=== PATIENT | male | born 1960 | race Caucasian/White ===

== ENCOUNTER 2018-11-20 06:08 | Inpatient (IN) | payer BC ==
[~2018-11-20] VITALS: Ht 182.9 cm; Wt 84.9 kg
[2018-11-20] VITALS (24 sets, daily range): BP systolic 128–186; BP diastolic 74–109; PULSE 70–104; RESP 15–25; Ht 182.9 cm; Wt 84.9 kg
[~2018-11-20 06:08] MED LIST: CEFAZOLIN 2 GM/50 ML (PMX) 50 ML IVPB SCH
[2018-11-20] MEDS ORDERED: GLYCOPYRROLATE 0.4 MG INJ ONE (06:17)
[2018-11-20] MEDS ORDERED: FENTAnyl 50 MCG/ML VIAL ONE ×2 (06:17→11:29)
[2018-11-20] MEDS ORDERED: NEOSTIGMINE 3 MG/3 ML SYRINGE ONE (06:17)
[2018-11-20] MEDS ORDERED: LIDOCAINE 2% (SDV) 5 ML INJ ONE (06:17)
[2018-11-20] MEDS ORDERED: ROCURONIUM 50 MG INJ ONE (06:17)
[2018-11-20] MEDS ORDERED: PROPOFOL 20 ML ONE (06:17)
[2018-11-20] MEDS ORDERED: MIDAZOLAM 1 MG/ML 2 ML INJ ONE (06:18)
[2018-11-20] MEDS ORDERED: DEXAMETHASONE 4 MG/ML 5 ML INJ ONE (06:18)
[2018-11-20] MEDS ORDERED: ONDANSETRON 4 MG INJ ONE (06:18)
[2018-11-20] MEDS ORDERED: SUCCINYLCHOLINE CHLORIDE 100 MG/5 ML SYG IV ONE (06:31)
[2018-11-20] MEDS ORDERED: THROMBIN 5000 UNIT VIAL ONE ×2 (06:55→08:29)
[2018-11-20] MEDS ORDERED: LIDOCAINE 1%/EPI 30 ML INJ ONE (06:55)
[2018-11-20] MEDS ORDERED: GELATIN SIZE 100 SPONGE ONE (06:55)
[2018-11-20] MEDS ORDERED: POLYMYXIN/BACITRACIN 1L IRRIG ONE (06:55)
[2018-11-20] MEDS ORDERED: SEVOFLURANE 15 MIN ONE (07:00)
[2018-11-20] MEDS ORDERED: CEFAZOLIN 1 GM INJ ONE (07:00)
[2018-11-20] MEDS: LACTATED RINGER'S 1,000 ML IV SCH (07:00)
--- NOTE | 2018-11-20 07:04 | PREAC ---
Date/Time of Note Date/Time of Note DATE: 11/20/18 TIME: 06:56 Anesthesia Eval and Record Evaluation Time Pre-Procedure Interview DATE: 11/20/18 TIME: 06:56 Age 58 Sex male NPO: 8 hrs Preoperative diagnosis Cervical Stenosis Planned procedure Anterior Cervical Disc Fusion 4-5, 5-6,6-7With Poss Corpectomy Ands Synthetic Graft Past Medical History Past Medical History: Includes Cardio: Dyslipidemia, Arrythmia Endo: Other Pulm: Other Neuro: Other Musculoskeletal: Other Renal: Other Hepatic: Other GI: Other Heme: Other Psych: Other Infection(s): Other Recreational drugs: Other : Other Surgery & Anesthesia Issues Hx of difficult intubation, Aspiration risk Meds Anticoagulation: No Beta Gildardo within 24 hr: No Reason Beta Gildardo not given: Pt. not on B-Gildardo Current Medications Lactated Ringer's 1,000 ml @ 25 mls/hr Q24H IV ; Start 11/20/18 at 06:00; Stop 11/21/18 at 21:59 Cefazolin Sodium/ Dextrose 50 ml @ 100 mls/hr PREOP IVPB ; Start 11/20/18 at 06:00; Stop 11/20/18 at 16:00 Meds reviewed: Yes Allergies Coded Allergies: No Known Allergy (Unverified , 11/16/18) Allergies Reviewed: Yes Labs/Studies Labs Reviewed: Reviewed by anesthesiologist test: N/A Studies: ECG, CXR Pre-procedure Exam Airway: Adequate mouth opening Mallampati: Mallampati II Teeth: Normal Lung: Normal Heart: Abnormal Anticipated Difficutly with IV: Anticipate Difficult IV Access ASA Physical Status ASA physical status: 2 Emergency: None Planned Anesthetic General/MAC: ETT Neuraxial: Other Nerve block: Other Planned Pain Management Parenteral pain med, Local by surgeon Pre-operative Attestations Prior to commencing anesthesia and surgery, the patient was re-evaluated, there was verification of: *The patient's identity *The results of appropriate recent lab work and preoperative vital signs *The above evaluation not changing prior to induction *Anesthetic plan, risk benefits, alternative and complications discussed with patient/family; questions answered; patient/family understands, accepts and wishes to proceed. DALY MAKI MD Nov 20, 2018 07:04
[2018-11-20] MEDS ORDERED: OXYC30TA PO (07:06)
[2018-11-20] MEDS ORDERED: CARI350T29 PO (07:07)
[2018-11-20] MEDS ORDERED: [UNRECOGNIZED DRUG - OTHER] MC (07:11)
[2018-11-20] MEDS ORDERED: BACL10TA IV (07:13)
--- NOTE | 2018-11-20 07:26 | NUR ---
PT WITH INTRATHECAL PUMP IMPLANT WITH MORPHINE AND BACLOFEN. AWARE, AWARE, OR NURSE AWARE.
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
[2018-11-20] MEDS ORDERED: SUGAMMADEX SODIUM 200 MG/2 ML VIAL IV ONE (09:19)
[2018-11-20] MEDS ORDERED: LIDOCAINE 4% CR ONE (10:31)
[2018-11-20] MEDS ORDERED: FLUMAZENIL 0.5 MG INJ ONE (13:46)
--- NOTE | 2018-11-20 13:58 | NUR ---
NURSING RR RECEIVED PT FROM OR NOT IN ANY DISTRESS .PT HAS NECK COLOR ON ,NEURO VASCULAR CHECK DONE AND IT IS INTACT . .PT HAS PAIN PUMP IMPLANTED TO LLQ . IV TO R HAND G 20 NEEDLE WITH LR INFUSING WELL . F/C TO GRAVITY WITH CLEAR YELLOW URINE . .
[2018-11-20] MEDS ORDERED: ACETAMINOPHEN 325 MG TAB PO PRN (14:00)
[2018-11-20] MEDS ORDERED: NACL 0.9% 3 ML SYG IV SCH (14:00)
[2018-11-20] MEDS ORDERED: ZOLPIDEM 5 MG TAB PO PRN (14:00)
[2018-11-20] MEDS ORDERED: CEPASTAT LOZENGE MT PRN (14:00)
[2018-11-20] MEDS ORDERED: HYDROCODONE/APAP (5/325) TAB PO PRN ×2 (14:00)
[2018-11-20] MEDS ORDERED: AL HYDROX/MG HYDROX/SIMETH 30 ML CUP PO PRN (14:00)
[2018-11-20] MEDS ORDERED: BETHANECHOL 25 MG TAB PO PRN (14:00)
[2018-11-20] MEDS ORDERED: ONDANSETRON 4 MG INJ IV PRN ×2 (14:00→14:30)
[2018-11-20] MEDS ORDERED: DIPHENHYDRAMINE 50 MG CAP PO PRN (14:00)
[2018-11-20] MEDS ORDERED: DIAZEPAM 5 MG TAB PO PRN (14:00)
[2018-11-20] MEDS ORDERED: NALOXONE (0.4 MG/ML) INJ IV PRN (14:00)
--- NOTE | 2018-11-20 14:08 | PAC ---
Date/Time of Note Date/Time of Note DATE: 11/20/18 TIME: 14:07 Post-Anesthesia Notes Post-Anesthesia Note Last documented vital signs Vital Signs Date Temp Pulse Resp B/P (MAP) Pulse Ox O2 O2 Flow FiO2 Time Delivery Rate 11/20/18 100 18 163/101 95 Room Air 14:00 (121) 11/20/18 98.3 13:58 Activity: WNL Respiratory function: WNL Cardiovascular function: WNL Mental status: Baseline Pain reasonably controlled: Yes Hydration appropriate: Yes Nausea/Vomiting absent: No DALY MAKI MD Nov 20, 2018 14:08
[2018-11-20] MEDS: FENTAnyl 50 MCG/ML VIAL IV PRN ×2 (14:26→14:36)
[2018-11-20] MEDS ORDERED: FENTAnyl 50 MCG/ML VIAL IV PRN ×2 (14:30)
[2018-11-20] MEDS ORDERED: hydrALAzine 20 MG INJ IV PRN (14:30)
[2018-11-20] MEDS ORDERED: HALOPERIDOL 5 MG INJ IV PRN (14:30)
[2018-11-20] MEDS ORDERED: METOCLOPRAMIDE 10 MG INJ IV PRN (14:30)
[2018-11-20] MEDS ORDERED: ALBUMIN HUMAN 5% 250 ML IV PRN (14:30)
[2018-11-20] MEDS ORDERED: MIDAZOLAM 1 MG/ML 2 ML INJ IV PRN (14:30)
[2018-11-20] MEDS ORDERED: LABETALOL HCL 20MG INJ IV PRN (14:30)
[2018-11-20] MEDS ORDERED: ALBUTEROL 0.083% (NEB) 2.5 MG/3 ML AMP HHN PRN (14:30)
[2018-11-20] MEDS ORDERED: HYDROmorphONE 1 MG/5 ML IV SYRINGE IV PRN ×3 (14:30)
[2018-11-20] MEDS ORDERED: MEPERIDINE 25 MG INJ IV PRN (14:30)
[2018-11-20] MEDS ORDERED: TRIMETHOBENZAMIDE 100 MG/ML VIAL IM PRN (14:30)
[2018-11-20] MEDS ORDERED: LEVALBUTEROL (NEB) 0.63 MG/3 ML AMP HHN PRN (14:30)
[2018-11-20] MEDS ORDERED: EPHEDrine SULFATE 50 MG/5 ML SYG IV PRN (14:30)
[2018-11-20] MEDS ORDERED: DIPHENHYDRAMINE 50 MG INJ IV PRN (14:30)
[2018-11-20] MEDS ORDERED: morphine (1 MG/ML) 10ML SYRINGE IV PRN ×3 (14:30)
[2018-11-20] MEDS: morphine 1 MG/ML 30 ML (PCA) IV SCH (14:32)
--- NOTE | 2018-11-20 15:30 | NUR ---
Nurse Notes Received Pt from recovery via bed, Pt ao x 4 and stable at this time. Pt came with rigid cervical collar on and ETHANOL QUALITY LEADER pump on demand. Pt's girlfriend Vasquez was at bedside and was updated regarding plan of care per Pt's request. school lunch monitor placed. Incentive spirometer provided and instructions given, return demonstration provided. Pt refused pictures taken, charge nurse aware. Skin assessment done, skin intact. Surgical site with dressing; clean, dry and intact. Rigid cervical collar in place.
--- NOTE | 2018-11-20 15:31 | OPR ---
DATE OF OPERATION: 11/20/2018 PREOPERATIVE DIAGNOSES: 1. Cervical stenosis, C4 to C5, C5 to C6, C6 to C7. 2. Cervical radiculopathy. 3. Cervicalgia. 4. Cervical myelopathy. POSTOPERATIVE DIAGNOSES: 1. Cervical stenosis, C4 to C5, C5 to C6, C6 to C7. 2. Cervical radiculopathy. 3. Cervicalgia. 4. Cervical myelopathy. PROCEDURES: 1. C4 to C5 anterior cervical diskectomy and fusion. 2. C6 corpectomy. 3. Cervical fusion C5, C6, C7. 4. Placement of mechanical device C4 to C5. 5. Placement of mechanical device for corpectomy at C5 through C7. 6. Placement of anterior cervical plate. 7. Use of microscope for intraoperative microdissection. SURGEON: Alyx Gage MD DEPUTY SHERIFF BUILDING GUARD: None. ANESTHESIA: General endotracheal. ESTIMATED BLOOD LOSS: 25 mL. DRAINS PLACED: None. ANESTHESIOLOGIST: Kenny Wiseman MD FINDINGS: Cervical spondylosis and stenosis. COMPLICATIONS: None. DISPOSITION: Recovery. INDICATIONS: The patient is a 58-year-old male with chronic neck pain and progressive right upper extremity weakness with multilevel cervical stenosis and spondylosis. The risks, benefits, alternatives of surgical intervention were discussed with the patient who elected for surgery. PROCEDURE IN DETAILS: The patient was brought to the OR. He was sedated, intubated and anesthesia was successfully induced by anesthesiologist. An arterial line was placed. The patient was placed in the supine position on the operative table. His arms were tucked and appropriately padded. His neck was slightly extended with a log roll placed in a neutral and the patient's head was placed in neutral position. Mild downward traction was applied to the shoulders and were taped. Sequential compression devices were placed in lower extremities. Perioperative antibiotics were given. The patient was sterilely prepped and draped after fluoroscopy was used to localize the initial incision. The patient was monitored with electrophysologic monitoring with SSEP and EMG and baseline potentials established. After surgical timeout, the procedure was commenced. A 5 mL of local anesthetic of 1% lidocaine with epinephrine was injected in the left incision which was diagonal incision parallel to the sternocleidomastoid. The 10-blade knife was used to make an incision through the skin and soft tissue down to platysma. This was sharply dissected and then blunt dissection with a Kitner and digitally was used to dissect through the avascular plane down to the prevertebral fascia. Bovie electrocautery was used to separate the longus colli muscles from the vertebral body in the soft tissue above the vertebral body and the disk was removed. A spinal needle was placed to confirm localization and this was performed over the inferior aspect of C4, complete C5 to C6 and superior aspect of C7 vertebral bodies. Self-retaining retractors were placed. A Neenah pin Neenah pins were then placed in the C7 and C5 vertebral bodies and distraction performed. The microscope was brought in for microdissection. Initial partial diskectomy was performed at C5 and C7 after anterior osteophytes were removed with a high- speed drill. A #11 blade knife was used to incise the disk and some of the disk was removed to define the margins of the C6 vertebral body. A high speed drill was then used to perform a corpectomy. Bone was collected and a bone trap to be used for autograft later. This was carried posteriorly through the cortical bone of the posterior longitudinal ligament. Ligament was and then with Kerrison rongeurs, a foraminotomy was performed at the C5 to C6 and C6 to C7 levels with attention towards the right side where the patient had some mild weakness. A complete diskectomy was performed at C5 to C6 and C6 to C7 levels after corpectomy was performed. The cartilaginous endplate was then removed with a high speed drill and curettes. With the decompression performed, a titanium interbody cage was filled with the autograft and some demineralized bone matrix and then a 24 mm graft tamponaded into the disk space. Distraction was removed. Fluoroscopy was used to confirm the alignment of the graft which appeared good. The self-retaining retractors were then moved to the C4 to C5 level and a diskectomy performed this level. A high speed drill was used to remove the large anterior osteophyte above the C5 to C6 disk space and 11 blade knife was used to incise the disk and perform a diskectomy. This was carried back to the posterior longitudinal ligament which was opened with Kerrison rongeurs to expose the epidrual space. Foraminotomies were performed at C4 to C5 level. A curet was then used to remove the cartilaginous endplate and squared these off to fit to fit the graft. Next, 6 x 14 x 14 PEEK graft filled with autograft harvested and the graft was tapped into the interspace. The distraction was removed and the graft fit snugly and appeared to be an adequate position on the fluoroscopy. The wound was then copiously irrigated and a 51 mm choice anterior cervical plate was then sized and placed over the vertebral body. Two screws were placed superior and inferior holes of the plate as well as into the C5 vertebral body. All screws had excellent purchase. Final tightening of the locking mechanism for the screws was engaged. AP, lateral x-rays performed and showed good instrumentation alignment. The wound was then copiously irrigated with bacitracin irrigation. The wound was evaluated. There was slight hemostasis achieved with bipolar electrocautery. There was no evidence of any significant residual bleeding. . The incision was then closed with 2-0 Vicryl in the platysma, 3-0 interrupted subcutaneous sutures and a running 4-0 Monocryl suture. Dermabond was placed. Incision allowed to dry and a sterile dressing applied. Sponge, needle and cottonoid count were reported correct at the end of the case. Electrophysiologic monitoring remained stable throughout the case. Dictated By: ALYX GAGE MD, LG/RACHNA Conf#: [id number] DID#: [id number]
--- NOTE | 2018-11-20 15:35 | NUR ---
TRANSFER PT TRANSFER TO ROOM 527 IN STABLE CONDITION ,RIGID CERVICAL COLLAR ON ORDERED .NEURO CHEK DONE AND IT IS WNL . CLARIFIED WITH DR GAGE THAT TRUSS BUILDER WAS OK WITH PAIN PUMP .RIGHT RADIAL A LINE D/C PRIOR TRANSFER PER DR MAKI ORDERS .CARE PROVIDED PER [facility] STANDARDS.
[2018-11-20] MEDS ORDERED: ACETAMINOPHEN 1000MG/100ML IV 100 ML IVPB SCH (16:00)
--- NOTE | 2018-11-20 16:27 | NUR ---
Nurse Notes Verified with Joyce from Pharmacy the compatibility of PHOTOGRAPHER SCIENTIFIC morphine and Ancef IVPB. Per Joyce, it is compatible, ok to give with 1 IV line.
[2018-11-20] MEDS: ACETAMINOPHEN 500 MG TAB PO SCH ×2 (16:54→22:12)
[2018-11-20] MEDS: CEFAZOLIN 1 GM/50 ML (PMX) 50 ML IVPB SCH ×2 (17:52→23:57)
--- NOTE | 2018-11-20 18:44 | NUR ---
EOSS Pt ao x 4 and stable at this time. Pt in no distress noted throughout the shift. Pt on Morphine TOWN ADMINISTRATOR pump on demand, per Pt, effectiveness is on and off. Per Pt, pain is manageable. Pt tolerated soft diet. Pt still with rigid cervical collar. Reinforce importance of repositioning and use of incentive spirometer, Pt stated understanding. Pt with intrathecal pain pump, MD is aware. Incision site kept clean, dry and intact. All needs met and all questions answered. Call light within reach. Will endorse to next shift accordingly. Addendum: 11/20/18 at 1925 by HERMILO BIRCH RN TOWN ADMINISTRATOR pump history cleared with grant Pascal.
[2018-11-21] VITALS (11 sets, daily range): BP systolic 100–142; BP diastolic 63–83; PULSE 70–98; RESP 18–20
[2018-11-21] MEDS: morphine 1 MG/ML 30 ML (PCA) IV SCH (02:59)
[2018-11-21] MEDS: ACETAMINOPHEN 500 MG TAB PO SCH ×2 (04:00→09:39)
[2018-11-21] MEDS: LACTATED RINGER'S 1,000 ML IV SCH (06:20)
[2018-11-21] MEDS: CEFAZOLIN 1 GM/50 ML (PMX) 50 ML IVPB SCH ×2 (06:20→12:08)
--- NOTE | 2018-11-21 08:55 | NUR ---
RN NOTES: INFORMED PHARMACIST PT HAD ATHROMBIC PUMP ON LEFT LOWER QUADRANT FOR PAIN CONTROL 13 YRS, BUT NOT IN USE FOR NOW. S/P CERVICAL FUSION C4-C7 SURGERY DAY 1 (11/20/17). PT CURRENTLY ON ARCHITECT MANAGER MORPHINE. HE SAID HE WAS ON PAIN MANAGEMENT SYSTEM FOR 13YRS AND WAS VERY HIGH PAIN TOLERABLE. ARCHITECT MANAGER MORPHINE DID NOT HELP MUCH, PAIN 10/10 ON NECK ALL THE TIME BUT HE DID NOT WANT TO CALL THE SURGION TONIGHT. HE PLANNED TO TALK WITH HIS DOCTOR IN [place] IN AM REGARDING PAIN MANAGEMENT FROM HIS MD TO NEURO SURGION AT [facility] SO HE WILL HAVE A BETTER PAIN RELIEVE. PT ABLE TO SLEEP THROUGH THE NIGHT. ASSISTED X2 WITH JELLO, PT SAID IT WOULD COMFORT HIS THROAT AND NECK. PT ALSO HAS A LIITLE BUMP ON LEFT AND BACK HIS HEAD, ACCORDING TO HIM, THE BUMP PROBABLY HAPPENED DURING THE SURGERY YESTERDAY. APPLIED COLD MEASURE WITH BARRIER. PT SAID, FELT BETTER. ARCHITECT MANAGER CLEARED AT 0730 WITH HERMILO/CHARGE NURSE AND FLORINA/ESTEFANIA RN. DR. GAGE CAME AT BEDSIDE WITH NEW ORDERS, F/U BEDSIDE REPORT WITH AM SHIFT.
[2018-11-21] MEDS: DOCUSATE SODIUM 100 MG CAP PO SCH ×2 (09:39→21:03)
[2018-11-21] MEDS: FERROUS SULFATE (EC) 325 MG TAB PO SCH ×3 (09:39→21:03)
--- NOTE | 2018-11-21 10:04 | PN ---
Date/Time of Note Date/Time of Note DATE: 11/21/18 TIME: 09:44 Assessment/Plan Lines/Catheters IV Catheter Type (from Nrsg): Peripheral IV Aldana in Place (from Nrsg): Yes Assessment/Plan Chief Complaint/Hosp Course POD # 1 s/p C4-5 ACDF, C6 corpectomy and C4-7 fusion. Neurologically stable. D/C Aldana. PT. Ambulate. I spoke with Dr. Jacobo who will contact Dr. Ivan re: pain management. Anticipate D/C tomorrow. Subjective 24 Hr Interval Summary Patient stable. Mostly c/o pain control issues; has chronic opioid issues. Denies hoarseness, weakness, bowel or bladder issues, fever or chills. Reports taht he may feel some improvement in his pre-operative hand numbness. Exam/Review of Systems Vital Signs Vitals Vital Signs Date Temp Pulse Resp B/P (MAP) Pulse Ox O2 O2 Flow FiO2 Time Delivery Rate 11/21/18 75 08:41 11/21/18 98.3 20 142/75 95 Room Air 07:51 (97) Intake and Output 11/20/18 11/20/18 11/21/18 1515:00 23:00 07:00 IntakeIntake Total 1475 ml 300 ml 1200 ml OutputOutput Total 1625 ml 500 ml 2500 ml BalanceBalance -150 ml -200 ml -1300 ml Exam Constitutional: alert, oriented Head: normocephalic Neck: other (incision C/D/I. No swellin or drainage. In hard cervical collar) Neurological: MANAGER CATEGORY II-XII intact, nl mental status, nl speech, nl strength Results Result Diagram: 11/21/18 0647 11/21/18 0647 ALYX GAGE MD Nov 21, 2018 10:04
--- NOTE | 2018-11-21 10:18 | NUR ---
PT EVAL Therapy day number 1 Evaluation Start Time 09:20 Evaluation Total Time 0 min Subjective Current complaint of pain Pain Scale NUMERIC Pain Intensity 9 (0-10) Patient Stated Goal for Pain Relief 0 (0-10) Pain Level Comment neck and B shoulders Pre Treatment Vital Signs Stable Yes - 152/83, 86bpm Exercise Assessment Label Bilat Lower Extremity Exercise Type Active ROM Additional Exercise Comments semi-supine APs, heel slides Exercise Assessment Label Bilat Upper Extremity Exercise Type Active ROM Additional Exercise Comments scapular retraction Supine to Sit Moderate Assist Transfer Sit to Stand Ability Stand by Assist Bed Mobility Sit to Supine Stand by Assist Bed Transfer Ability Contact Guard Assist Chair Transfer Ability Contact Guard Assist Sitting Tolerance 15 min Additional Mobility Comments donning cervical collar, log-roll technique Patient uses wheelchair Not Applicable Gait Assist Levels Contact Guard Assist Assistive Devices Front Wheel Walker Ambulation Distance 100 feet Additional Gait Comments reciprocal, steady, no LOB or rest breaks Additional Stairs Assist Comments TBA Static Sitting Balance Good Dynamic Sitting Balance Good Standing Static Balance Good Dynamic Standing Balance Fair plus Additional Balance Assessments Comments FWW Safety Judgement Good Activity Tolerance Good Equipment Present A pump Aldana Catheter IV pump FARM WORKER Additional Equipment Present rigid cervical collar Post Treatment Pain Intensity 9 0-10 Variance Documentation SEE PT EVAL PT Technical Record Comment PT EVAL Pt is a 58 yo M with PMH hyperlipidemia, cervical spondylosis, chronic neck pain, UE numbness with cervical radiculopathy and possible myelopathy who is now S/P C4-C5 cervical diskectomy and fusion, C6 corpectomy, and C5,C6,C7 cervical fusion on 11/20/18. Pt received in 5W, telemetry. Precautions: rigid cervical collar, spinal precautions PLOF: Pt lives alone in 1st floor apartment with 23 steps to enter. Ambulatory without AD, I with all ADLs. Pt is not working, was driving prior to sx. CLOF: KEVIN Coombs cleared pt for PT evaluation. Pt received in bed, vitals assessed and stable, pt educated in purpose of PT evaluation, spinal precautions, use of rigid cervical collar, and agreeable to PT eval. Bed mobility, transfer, and gait assessment as described above; able to maintain spinal precautions with all mobility. Pt returned to bed, all needs in reach, bed alarm activated, SCD's reapplied, FARM WORKER in reach. RN notified of pt's status. Recommendation: Pt demonstrates steady, reciprocal gait with FWW, amb 100' this session; pt able to maintain spinal precautions with all mobility. Stairs TBA. Pt will benefit from additional skilled PT services during hospital stay for further mobility training. Pt states he would like to d/c to post-acute setting once cleared by MD as pt lives alone and has 23 steps to enter. D/c recommendation pending pt progress. If d/c home pt would benefit from FWW, 3:1 commode. Plan: Continue c PT POC
--- NOTE | 2018-11-21 11:36 | NUR ---
CM NOTES: ORDER FOR ELEVATED TOILET SEAT FAXED TO [facility] AND [facility] ([phone]). MILLI SALDIVAR, KEVINCM [phone]
[2018-11-21] MEDS: ACETAMINOPHEN 1000MG/100ML IV 100 ML IVPB SCH ×3 (11:41→21:51)
--- NOTE | 2018-11-21 15:11 | NUR ---
PT NOTE Therapy day number 1 Subjective Current complaint of pain Pain Scale NUMERIC Pain Intensity 8 (0-10) Patient Stated Goal for Pain Relief 0 (0-10) Pain Level Comment neck and B shoulders Transfer Training Start Time 14:46 Transfer Sit to Stand Ability Stand by Assist Bed Transfer Ability Stand by Assist Chair Transfer Ability Stand by Assist Sitting Tolerance 10 min Additional Mobility Comments donning cervical collar throughout Transfer Training End Time 14:58 Total Transfer Training Time 12 min (8-127) Gait Training Start Time 14:58 Gait Assist Levels Contact Guard Assist Assistive Devices Front Wheel Walker Ambulation Distance 300 feet Additional Gait Comments reciprocal, steady, stable Gait Training End Time 15:11 Total Gait Training Treatment Time 13 min (8-127) Additional Stairs Assist Comments pt unwilling to attempt stairs at this time Static Sitting Balance Good Dynamic Sitting Balance Good Standing Static Balance Good Dynamic Standing Balance Fair plus Additional Balance Assessments Comments FWW Safety Judgement Good Activity Tolerance Good Equipment Present A pump Aldana Catheter IV pump LABORATORY SUPERVISOR Additional Equipment Present rigid cervical collar Post Treatment Pain Intensity 8 0-10 Variance Documentation SEE PT NOTE Total Treament Time 25 min (8-127) Total Minutes 25 Total Units 2 PT Technical Record Comment PT NOTE S: Pt reports feeling better O; RN Corin cleared pt for PT session. Pt receievd up in chair. Pt participated in interventions above. Noted with gait using FWW, steady, stable, reciprocal. Pt unwilling to attempt stairs at this time due to multiple lines and tubes. Pt returned to room up in chair, told to notify nurse if to wanting to return to bed, all needs in reach. RN notified of pt's status, A: Pt demonstrates improved activity tolerance, able to amb 300' with FWW and steady, stable gait. Stairs TBA. P; Continue c PT POC; attempt stairs tomorrow PT CLEARED TO AMB WITH NURSING USING FWW
--- NOTE | 2018-11-21 15:39 | PN ---
Date/Time of Note Date/Time of Note DATE: 11/21/18 TIME: 15:36 Assessment/Plan VTE Prophylaxis Risk score (from Nsg)>0 risk: 2 SCD applied (from Nsg): Yes Pharmacological prophylaxis: NA/contraindicated Pharm contraindication: low risk/ambulating Lines/Catheters IV Catheter Type (from Nrsg): Peripheral IV Urinary Cath still in place: No Assessment/Plan Hospital Course 58 y/o with #pOD # 1 s/p C4-5 ACDF, C6 corpectomy and C4-7 fusion. #Multiple surgeries in the past on chronic pain medications and intrathecal pump #Hypercholesterolemia PLAN -On HOSE TUBING BACKER pump, Tylenol, intrathecal pump( which according to him delivers 7 mg morphne in 24 hrs) - dr gr pain management called for consult - dc iv fluids - ambulate Result Diagram: 11/21/18 0647 11/21/18 0647 Results 24hrs Laboratory Tests Test 11/21/18 06:47 Hemoglobin 11.1 L Hematocrit 33.7 L Sodium Level 140 Potassium Level 4.3 Chloride Level 99 Carbon Dioxide Level 34 H Anion Gap 7 Blood Urea Nitrogen 12 Creatinine 0.91 Est Glomerular Filtrat Rate mL/min > 60 Glucose Level 96 Calcium Level 8.8 Subjective 24 Hr Interval Summary Free Text/Dictation Pt says pain not controlled Exam/Review of Systems Vital Signs Vitals Vital Signs Date Temp Pulse Resp B/P (MAP) Pulse Ox O2 O2 Flow FiO2 Time Delivery Rate 11/21/18 98.0 76 20 129/83 94 Room Air 15:33 (98) Intake and Output 11/20/18 11/20/18 11/21/18 1414:59 22:59 06:59 IntakeIntake Total 1475 ml 300 ml OutputOutput Total 1625 ml 500 ml BalanceBalance -150 ml -200 ml Exam Constitutional: alert, oriented Head: normocephalic Lungs:clear CVS: Regular rate andf rthym Neck: hard collar, no drainge Medications Medications Current Medications Acetaminophen/ Hydrocodone Bitart ([place] (5/325)) 1 tab Q4H PRN PO PAIN LEVEL 1-5; Start 11/20/18 at 14:00 Acetaminophen/ Hydrocodone Bitart ([place] (5/325)) 2 tab Q4H PRN PO PAIN LEVEL 6-10; Start 11/20/18 at 14:00 Zolpidem Tartrate (Ambien) 5 mg HS PRN PO INSOMNIA; Start 11/20/18 at 14:00 Ondansetron HCl (Zofran Inj) 4 mg Q6H PRN IV NAUSEA AND/OR VOMITING Last administered on 11/20/18at 14:42; Admin Dose 4 MG; Start 11/20/18 at 14:00 Al Hydrox/Mg Hydrox/Simethicone (Mag-Al Plus) 15 ml Q4H PRN PO GASTROINTESTINAL UPSET; Start 11/20/18 at 14:00 Docusate Sodium (Colace) 100 mg BID PO Last administered on 11/21/18at 09:39; Admin Dose 100 MG; Start 11/21/18 at 09:00 Acetaminophen (Tylenol Tab) 650 mg Q4H PRN PO fever/ mild pain; Start 11/20/18 at 14:00 Ferrous Sulfate (Ferrous Sulfate (Ec)) 325 mg TID PO Last administered on 11/21/18at 15:27; Admin Dose 325 MG; Start 11/21/18 at 09:00 Diazepam (Valium) 5 mg Q4H PRN PO MUSCLE SPASMS; Start 11/20/18 at 14:00 Phenol (Cepastat Lozenge) 1 lozenge Q2H PRN MT SORE THROAT; Start 11/20/18 at 14:00 Bethanechol Chloride (Urecholine) 25 mg PRN PRN PO UNABLE TO VOID; Start 11/20/18 at 14:00 Diphenhydramine HCl (Benadryl) 50 mg Q6H PRN PO PRURITUS; Start 11/20/18 at 14:00 IV Flush (NS 3 ml) 3 ml PER PROTOCOL IV ; Start 11/20/18 at 14:00 Morphine Sulfate (morphine) 1 mg Q4PCA IV Last administered on 11/21/18at 02:59; Admin Dose 1 MG; Start 11/20/18 at 14:00 Naloxone HCl (Narcan) 0.2 mg Q2M PRN IV overdose; Start 11/20/18 at 14:00 Acetaminophen 100 ml @ 400 mls/hr Q6H IVPB Last administered on 11/21/18at 15:28; Admin Dose 400 MLS/HR; Start 11/21/18 at 10:00; Stop 11/22/18 at 09:59 MARILEE OWEN MD Nov 21, 2018 15:39
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
--- NOTE | 2018-11-21 18:04 | NUR ---
END OF SHIFT AWAKE ALERT MALE PATIENT. VITAL SIGN WAS STABLE AND SINUS RHYTHM ON THE MONITOR. AMBULATE 2 TIME WITH PHYSICAL THERAPIST.PAIN CONTROLLING BY SPORTS MARKETING INTERNSHIP. MONITORING PATIENT.
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
[2018-11-21] MEDS ORDERED: traZODone 50 MG TAB PO PRN (19:30)
[2018-11-21] MEDS ORDERED: morphine 1 MG/ML 30 ML (PCA) IV SCH (19:30)
[2018-11-22] VITALS (12 sets, daily range): BP systolic 140–182; BP diastolic 72–108; PULSE 72–95; RESP 18–20
[2018-11-22] MEDS: ACETAMINOPHEN 1000MG/100ML IV 100 ML IVPB SCH (04:21)
--- NOTE | 2018-11-22 04:43 | NUR ---
PT REMAIN IN STABLE CONDITION OVER NIGHT. DENIES ANY ACUTE DISTRESS. VITAL SIGNS WITHIN NORMAL LIMITS. PT ON GASOLINE PUMP MECHANIC PUMP. BILATERAL LOWER EXT EDEMA NOTED. ALL NEEDS ATTENDED TO. WILL ENDORSE TO DAY SHIFT FOR CONTINUITY OF CARE.
[2018-11-22] MEDS: DOCUSATE SODIUM 100 MG CAP PO SCH ×2 (08:15→19:43)
[2018-11-22] MEDS: PANTOPRAZOLE 40 MG INJ IV SCH ×2 (08:15→17:56)
[2018-11-22] MEDS: FERROUS SULFATE (EC) 325 MG TAB PO SCH ×3 (08:15→19:43)
[2018-11-22] MEDS: DEXAMETHASONE 4 MG/ML 1 ML INJ IV SCH ×3 (08:15→19:43)
--- NOTE | 2018-11-22 10:37 | NUR ---
PT NOTE , Therapy day number 2 Subjective Current complaint of pain Pain Scale NUMERIC Pain Intensity 5 (0-10) Patient Stated Goal for Pain Relief 0 (0-10) Pain Level Comment NECK AND SHOULDERS . Supine to Sit Stand by Assist Transfer Sit to Stand Ability Stand by Assist Bed Mobility Sit to Supine Stand by Assist Bed Transfer Ability Stand by Assist Chair Transfer Ability Stand by Assist Gait Training Start Time 10:05 Gait Assist Levels Stand by Assist Assistive Devices Front Wheel Walker Ambulation Distance 300 feet Additional Gait Comments STEADY, SDTABLE RECIPROCAL , SLOW DEISY . Gait Training End Time 10:30 Total Gait Training Treatment Time 25 min (8-127) Additional Stairs Assist Comments TBA Static Sitting Balance Good Dynamic Sitting Balance Good Standing Static Balance Good Dynamic Standing Balance Good Additional Balance Assessments Comments W/FWW Safety Judgement Good Activity Tolerance Good Equipment Present IV pump ADMINISTRATIVE AND PROGRAM SPECIALIST Additional Equipment Present RIGID CERVICAL COLLAR . Post Treatment Pain Intensity 5 0-10 Total Treatment Time 25 min (8-127) Total Minutes 25 Total Units 2 PT Technical Record Comment PT NOTE , S: RN CLEARED , PATIENT AGREEABLE . C/O SWALLOWING DIFFICULTY . O: P/S SEE PT NOTE FOR PATIENT'S FUNCTIONAL STATUS , GAIT TR W/FWW PERFORMED 300' SBA , GAIT W/FWW RECIPROCAL, STEADY, STABLE WITH NO LOB , PATIENT IS CLEARED TO AMBULATE WITH NSG FOURTH HAND NOTIFIED . A: DC PLANNING PER MD RECOMMENDATION IF RETURN HOME MAY NEED FWW , PENDING PATIENT'S PROGRESS . P: CONTINUE WITH POC , ADVANCE GAIT TR TO WITHOUT AD WHEN ABLE AND STAIR TR WHEN AGREE .
--- NOTE | 2018-11-22 12:48 | PN ---
Date/Time of Note Date/Time of Note DATE: 11/22/18 TIME: 12:44 Assessment/Plan VTE Prophylaxis Risk score (from Nsg)>0 risk: 2 SCD applied (from Ns): No SCD contraindicated: low risk/ambulating Pharmacological prophylaxis: NA/contraindicated Pharm contraindication: surgical contra Lines/Catheters IV Catheter Type (from Nrsg): Peripheral IV Urinary Cath still in place: No Assessment/Plan Hospital Course #POD # 2 s/p C4-5 ACDF, C6 corpectomy and C4-7 fusion. #Multiple surgeries in the past on chronic pain medications and intrathecal pump #Hypercholesterolemia # Anemia Assessment/Plan -DVT prophylaxis SCD -GI prophylaxis Protonix -pt is NPO, start IV fluids while NPO -c/w steroids -On LLAMA FARMER pump, Tylenol, intrathecal pump - dr Teresa pain management called for consult - ambulate -prn constipation Result Diagram: 11/21/18 0647 11/21/18 0647 Subjective 24 Hr Interval Summary Gastrointestinal: constipation (2 days) Exam/Review of Systems Vital Signs Vitals Vital Signs Date Temp Pulse Resp B/P (MAP) Pulse Ox O2 O2 Flow FiO2 Time Delivery Rate 11/22/18 98.0 79 20 173/84 97 Room Air 11:25 (113) Intake and Output 11/21/18 11/21/18 11/22/18 1414:59 22:59 06:59 IntakeIntake Total 1300 ml 2500 ml OutputOutput Total 2500 ml 2100 ml BalanceBalance -1200 ml 400 ml Exam Constitutional: alert, oriented Neck: other (collar with pump) Respiratory: clear to auscultation Cardiovascular: regular rate and rhythm Gastrointestinal: soft Musculoskeletal: nl extremities to inspection Medications Medications Current Medications Acetaminophen/ Hydrocodone Bitart ([place] (5/325)) 1 tab Q4H PRN PO PAIN LEVEL 1-5; Start 11/20/18 at 14:00 Ondansetron HCl (Zofran Inj) 4 mg Q6H PRN IV NAUSEA AND/OR VOMITING Last administered on 11/20/18at 14:42; Admin Dose 4 MG; Start 11/20/18 at 14:00 Al Hydrox/Mg Hydrox/Simethicone (Mag-Al Plus) 15 ml Q4H PRN PO GASTROINTESTINAL UPSET; Start 11/20/18 at 14:00 Docusate Sodium (Colace) 100 mg BID PO Last administered on 11/22/18 08:15; Admin Dose 100 MG; Start 11/21/18 at 09:00 Acetaminophen (Tylenol Tab) 650 mg Q4H PRN PO fever/ mild pain; Start 11/20/18 at 14:00 Ferrous Sulfate (Ferrous Sulfate (Ec)) 325 mg TID PO Last administered on 11/22/18 08:15; Admin Dose 325 MG; Start 11/21/18 at 09:00 Diazepam (Valium) 5 mg Q4H PRN PO MUSCLE SPASMS; Start 11/20/18 at 14:00 Phenol (Cepastat Lozenge) 1 lozenge Q2H PRN MT SORE THROAT; Start 11/20/18 at 14:00 Bethanechol Chloride (Urecholine) 25 mg PRN PRN PO UNABLE TO VOID; Start 11/20/18 at 14:00 Diphenhydramine HCl (Benadryl) 50 mg Q6H PRN PO PRURITUS; Start 11/20/18 at 14:00 IV Flush (NS 3 ml) 3 ml PER PROTOCOL IV ; Start 11/20/18 at 14:00 Naloxone HCl (Narcan) 0.2 mg Q2M PRN IV overdose; Start 11/20/18 at 14:00 Morphine Sulfate (morphine) MG/HR CONTINUOUS RATE ... Q4PCA IV Last administere d on 11/21/18at 19:34; Admin Dose 30 MG; Start 11/21/18 at 19:30 Trazodone HCl (Desyrel) 50 mg HS PRN PO INSOMNIA; Start 11/21/18 at 19:30 Dexamethasone (Decadron) 4 mg Q6H IV Last administered on 11/22/18 08:15; Admin Dose 4 MG; Start 11/22/18 at 08:00; Stop 11/23/18 at 12:00 Pantoprazole (Protonix Iv) 40 mg AC BREAKFAST DINNER IV Last administered on 11/22/18 08:15; Admin Dose 40 MG; Start 11/22/18 at 07:25 PAUL NAILS Nov 22, 2018 12:48
[2018-11-22] MEDS ORDERED: DIPHENHYDRAMINE 50 MG INJ IV PRN (14:00)
--- NOTE | 2018-11-22 14:27 | NUR ---
PT NOTE , ATTEMPTED TO SEE THE PATIENT FOR PT TREATMENT , HOWEVER THE PATIENT DECLINED PT DUE TO SEVERE SWALLOWING DIFFICULTY, REFUSAL RESPECTED PLAN TO FOLLOW UP IN AM , RN NOTIFIED .
[2018-11-22] MEDS: DEXTROSE 5%-0.9% NACL 1,000 ML IV SCH (14:54)
--- NOTE | 2018-11-22 18:38 | NUR ---
DISCONTINUED MORPHINE METAL FURNITURE GLAZIER. PATIENT USED METAL FURNITURE GLAZIER TOTAL VOL:86.84 SINCE .DISCARD 2.18ML TODAY.
[2018-11-22] MEDS: oxyCODONE 5 MG TAB PO PRN (19:43)
--- NOTE | 2018-11-22 19:59 | NUR ---
END OF SHIFT AWAKE AND ALERT MALE PATIENT. VITAL SIGN WAS STABLE AND SINUS RHYTHM ON THE MONITOR. DC'D WASH TEST CHECKER AND CONTROLLING PAIN BY PAIN MEDICATION. PATENT REFUSED PHYSICAL THERAPY AFTERNOON.MONITORING PATIENT.
--- NOTE | 2018-11-22 21:58 | NUR ---
Pt is now resting comfortably. Given pain med as requested, given icepack. Continuous wearing of cervical collar. noted Anterior inc with dry dressing. Pt on soft diet. As per reprot, pt doesn't eat much. Last BM was . Given Colace. Will offer suppositiory. Will notify MD tomorrow morning if no BM tonight.
--- NOTE | 2018-11-22 23:13 | NUR ---
Pt is watching TV at this time. Seems comfortable. Pt wants a suppository later together with his pain med at 2am. Cervical collar on at all times.
[2018-11-23] VITALS (12 sets, daily range): BP systolic 128–161; BP diastolic 71–87; PULSE 68–95; RESP 18–20
[2018-11-23] MEDS: BISACODYL 10 MG SUPP PR PRN ×3 (01:43→10:13)
[2018-11-23] MEDS: DEXAMETHASONE 4 MG/ML 1 ML INJ IV SCH ×2 (01:43→08:38)
[2018-11-23] MEDS: oxyCODONE 5 MG TAB PO PRN ×3 (01:44→20:06)
[2018-11-23] MEDS: PANTOPRAZOLE 40 MG INJ IV SCH ×2 (04:54→17:47)
--- NOTE | 2018-11-23 05:32 | NUR ---
Pt is now sleeping. As per pt, the 1st suppository given fell off. Asked for another one but will insert a bit later. Cervical collar on at all times. On room air. Decadron and Roxicodone given at around 2am. Ice pack is also helping with the shoulders discomfort.
--- NOTE | 2018-11-23 07:22 | NUR ---
Called [facility] and spoke to Des .he said to call Laurence, ext [phone] on Sunday but it doesn't guarantee the [place] collar be here on Sunday. Notified Corin to let surgeon know.
--- NOTE | 2018-11-23 08:11 | PN ---
Date/Time of Note Date/Time of Note DATE: 11/23/18 TIME: 08:03 Assessment/Plan Lines/Catheters IV Catheter Type (from Nrsg): Peripheral IV Aldana in Place (from Nrsg): No Assessment/Plan Chief Complaint/Hosp Course POD # 3 s/p C4-5 ACDF, C6 corpectomy and C4-7 fusion. Neurologically stable. STS likely edema, don't think hematoma given delayed development and not progressing at this point. Never experienced any airway compromise.Symptoms improving with steroids so I want to continue with IV steroids for today. If able to swallow adequately then home tomorrow, will D/C with Medrol dose pack.. Ambulate. SCD. Awaiting new collar for patient. PT. Pain management per Dr. Ivan, SOLE TIER has been D/C'd. Subjective 24 Hr Interval Summary Patient doing better today. He states that he has less swallowing difficulty. He states that the preoperative numbness in his hands continues to improve. He denies fever, chills, breathing difficulty or hoarseness. He denies weakness. Exam/Review of Systems Vital Signs Vitals Vital Signs Date Temp Pulse Resp B/P (MAP) Pulse Ox O2 O2 Flow FiO2 Time Delivery Rate 11/23/18 98.0 71 20 161/85 96 Room Air 07:36 (110) Intake and Output 11/22/18 11/22/18 11/23/18 1515:00 23:00 07:00 IntakeIntake Total 800 ml 1400 ml BalanceBalance 800 ml 1400 ml Exam Constitutional: alert, oriented Head: normocephalic ENMT: other Neck: other (incsion C/D/I, no swelling or tenderness) Neurological: CUSTODIAN SUPERVISOR II-XII intact, nl mental status, nl speech, nl strength Results Result Diagram: 11/23/18 0543 11/23/18 0543 Procedures Procedures A/P lateral c-spine x-rays reviewed. Stable instrumentation but significant pre- vertebral STS, hematoma vs edema. ALYX GAGE MD Nov 23, 2018 08:11
[2018-11-23] MEDS: FERROUS SULFATE (EC) 325 MG TAB PO SCH ×3 (08:38→20:02)
[2018-11-23] MEDS: DOCUSATE SODIUM 100 MG CAP PO SCH ×2 (08:38→20:02)
[2018-11-23] MEDS: DEXTROSE 5%-0.9% NACL 1,000 ML IV SCH (08:44)
--- NOTE | 2018-11-23 08:55 | NUR ---
PT NOTE Therapy day number 3 Subjective Current complaint of pain Pain Scale NUMERIC Pain Intensity 7 (0-10) Patient Stated Goal for Pain Relief 0 (0-10) Pain Level Comment NECK AND (B) SHOULDER PAIN Transfer Training Start Time 08:55 Supine to Sit Supervised Transfer Sit to Stand Ability Supervised Bed Mobility Sit to Supine Supervised Toileting Ability Independent Transfer Training End Time 09:10 Total Transfer Training Time 15 min (8-127) Patient uses wheelchair Not Applicable Gait Training Start Time 09:10 Gait Assist Levels Supervised Assistive Devices Front Wheel Walker Ambulation Distance 320 feet Additional Gait Comments reciprocal gait, intermittent fast pace, no LOB/buckling, slight flex postu Gait Training End Time 09:34 Total Gait Training Treatment Time 24 min (8-127) Stair Climbing Ability Stand by Assist Number of Stairs 3 Stairs Additional Stairs Assist Comments 3 steps x 2 using 1 rail (R) side, reciprocal pattern, fair demonstation Static Sitting Balance Good Dynamic Sitting Balance Good Standing Static Balance Good Dynamic Standing Balance Good Additional Balance Assessments Comments FWW Safety Judgement Good Activity Tolerance Good Equipment Present A pump IV pump Additional Equipment Present RIGID CERVICAL COLLAR . Post Treatment Pain Intensity 7 0-10 Variance Documentation SEE BELOW AND PT NOTE Total Treament Time 39 min (8-127) Total Minutes 39 Total Units 3 PT Technical Record Comment PT NOTE S: Pt stated, "I am feeling great. Much better than yesterday. I am ready to go on a stroll." Agreeable for PT and cleared per KEVIN Coombs. O: Received pt in semi-fowlers, alert w/rigid cervical collar donned already. Reeducated pt w/spinal precautions and pt verbalized fair understanding. Bed mobility Supervised/Christina. Applied gait belt at EOB. STS w/no AD Supervised. Gait training performed w/FWW 320' Supervised. Noted reciprocal gait, intermittent fast pace, no LOB/buckling, slight flexed posture, and occasionally letting go of AD during ambulation. Pt required VCs/TCs to correct posture, slow jenni, and to not let go of AD during ambulation for safety. Pt verbalized and demonstrated w/fair return. Stair training performed 3 steps x 2 using 1 rail (R) side, reciprocal pattern, fair demonstration SBA/Supervised. Assisted pt back to room to toilet per pt's request Independent. Assisted pt BTB. Left pt in comfort position, call light/phone within reach, bed alarmed, and all needs met. RN Corin informed of pt's status. A: Good tolerance to tx. Pt showed no signs of distress or SOB during or after tx. No c/o dizziness or nausea throughout tx. Bed mobility, transfers, and gait assistance/distance improved compared to previous tx. P: Continue POC and progress as tolerated.
--- NOTE | 2018-11-23 11:50 | PN ---
Date/Time of Note Date/Time of Note DATE: 11/23/18 TIME: 11:50 Assessment/Plan VTE Prophylaxis Risk score (from Ns)>0 risk: 5 SCD applied (from Ns): Yes Pharmacological prophylaxis: NA/contraindicated Pharm contraindication: surgical contra Lines/Catheters IV Catheter Type (from Nrsg): Peripheral IV Urinary Cath still in place: No Assessment/Plan Hospital Course #POD # 2 s/p C4-5 ACDF, C6 corpectomy and C4-7 fusion. #Multiple surgeries in the past on chronic pain medications and intrathecal pump #Hypercholesterolemia # Anemia Assessment/Plan -DVT prophylaxis SCD -GI prophylaxis Protonix -pt is eating, stop IV fluids -c/w steroids -Off DYNAMOMETER TUNER pump, - dr Teresa pain management - ambulate -prn constipation Result Diagram: 11/23/18 0543 11/23/18 0543 Results 24hrs Laboratory Tests Test 11/23/18 05:43 White Blood Count 9.2 Red Blood Count 3.72 L Hemoglobin 11.1 L Hematocrit 32.9 L Mean Corpuscular Volume 88.4 Mean Corpuscular Hemoglobin 29.8 Mean Corpuscular Hemoglobin Concent 33.7 Red Cell Distribution Width 12.7 Platelet Count 221 Mean Platelet Volume 10.1 Immature Granulocytes % 0.200 Neutrophils % 87.1 H Lymphocytes % 7.1 L Monocytes % 5.5 Eosinophils % 0.0 Basophils % 0.1 Nucleated Red Blood Cells % 0.0 Immature Granulocytes # 0.020 Neutrophils # 8.0 H Lymphocytes # 0.7 L Monocytes # 0.5 Eosinophils # 0.0 Basophils # 0.0 Nucleated Red Blood Cells # 0.0 Sodium Level 138 Potassium Level 4.4 Chloride Level 103 Carbon Dioxide Level 29 Anion Gap 6 Blood Urea Nitrogen 10 Creatinine 0.62 Est Glomerular Filtrat Rate mL/min > 60 Glucose Level 160 Calcium Level 9.2 Subjective 24 Hr Interval Summary Respiratory: no complaints Cardiovascular: no complaints Musculoskeletal: bone/joint pain Exam/Review of Systems Vital Signs Vitals Vital Signs Date Temp Pulse Resp B/P (MAP) Pulse Ox O2 O2 Flow FiO2 Time Delivery Rate 11/23/18 98.4 83 20 147/78 94 Room Air 11:33 (101) Intake and Output 11/22/18 11/22/18 11/23/18 1515:00 23:00 07:00 IntakeIntake Total 800 ml 1400 ml BalanceBalance 800 ml 1400 ml Exam collar Neck: supple, other (collar) Respiratory: clear to auscultation Cardiovascular: regular rate and rhythm Medications Medications Current Medications Ondansetron HCl (Zofran Inj) 4 mg Q6H PRN IV NAUSEA AND/OR VOMITING Last administered on 11/20/18at 14:42; Admin Dose 4 MG; Start 11/20/18 at 14:00 Al Hydrox/Mg Hydrox/Simethicone (Mag-Al Plus) 15 ml Q4H PRN PO GASTROINTESTINAL UPSET; Start 11/20/18 at 14:00 Docusate Sodium (Colace) 100 mg BID PO Last administered on 11/23/18 08:38; Admin Dose 100 MG; Start 11/21/18 at 09:00 Acetaminophen (Tylenol Tab) 650 mg Q4H PRN PO fever/ mild pain; Start 11/20/18 at 14:00 Ferrous Sulfate (Ferrous Sulfate (Ec)) 325 mg TID PO Last administered on 11/23/18 08:38; Admin Dose 325 MG; Start 11/21/18 at 09:00 Diazepam (Valium) 5 mg Q4H PRN PO MUSCLE SPASMS; Start 11/20/18 at 14:00 Phenol (Cepastat Lozenge) 1 lozenge Q2H PRN MT SORE THROAT; Start 11/20/18 at 14:00 Bethanechol Chloride (Urecholine) 25 mg PRN PRN PO UNABLE TO VOID; Start 11/20/18 at 14:00 Diphenhydramine HCl (Benadryl) 50 mg Q6H PRN PO PRURITUS Last administered on 11/23/18 08:57; Admin Dose 50 MG; Start 11/20/18 at 14:00 IV Flush (NS 3 ml) 3 ml PER PROTOCOL IV ; Start 11/20/18 at 14:00 Naloxone HCl (Narcan) 0.2 mg Q2M PRN IV overdose; Start 11/20/18 at 14:00 Trazodone HCl (Desyrel) 50 mg HS PRN PO INSOMNIA; Start 11/21/18 at 19:30 Dexamethasone (Decadron) 4 mg Q6H IV Last administered on 11/23/18 08:38; Admin Dose 4 MG; Start 11/22/18 at 08:00; Stop 11/23/18 at 12:00 Pantoprazole (Protonix Iv) 40 mg AC BREAKFAST DINNER IV Last administered on 11/23/18 04:54; Admin Dose 40 MG; Start 11/22/18 at 07:25 Bisacodyl (Dulcolax Supp) 10 mg DAILY PRN [place] CONSTIPATION Last administered on 11/23/18 10:13; Admin Dose 10 MG; Start 11/22/18 at 13:00 Dextrose/Sodium Chloride 1,000 ml @ 50 mls/hr Q20H IV Last administered on 11/23/18 08:44; Admin Dose 50 MLS/HR; Start 11/22/18 at 13:00 Diphenhydramine HCl (Benadryl) 25 mg Q12H PRN IV ALLERGIC REACTION Last administered on 11/22/18 14:51; Admin Dose 25 MG; Start 11/22/18 at 14:00 Oxycodone HCl (Roxicodone) 15 mg Q6H PRN PO MODERATE PAIN LEVEL 4-6 Last administered on 11/23/18 10:14; Admin Dose 15 MG; Start 11/22/18 at 17:00 PAUL NAILS Nov 23, 2018 11:50
--- NOTE | 2018-11-23 13:45 | NUR ---
PT NOTE Therapy day number 3 Subjective Denies pain Pain Scale NUMERIC Pain Intensity 0 (0-10) Patient Stated Goal for Pain Relief 0 (0-10) Pain Level Comment Denies pain at rest, w/movement pain on (B) shoulders Transfer Training Start Time 13:45 Supine to Sit Modified Independent Transfer Sit to Stand Ability Modified Independent Bed Mobility Sit to Supine Modified Independent Transfer Training End Time 14:00 Total Transfer Training Time 15 min (8-127) Patient uses wheelchair Not Applicable Gait Training Start Time 14:00 Gait Assist Levels Supervised Assistive Devices Front Wheel Walker Ambulation Distance 350 feet Additional Gait Comments reciprocal gait and no LOB/buckling Gait Training End Time 14:15 Total Gait Training Treatment Time 15 min (8-127) Stair Climbing Ability Supervised Number of Stairs 12 Stairs Additional Stairs Assist Comments 12 steps x 1 using 1 rail (R) side, reciprocal pattern, fair demonstation Static Sitting Balance Good Dynamic Sitting Balance Good Standing Static Balance Good Dynamic Standing Balance Good Additional Balance Assessments Comments FWW Safety Judgement Good Activity Tolerance Good Equipment Present A pump Additional Equipment Present RIGID CERVICAL COLLAR . Post Treatment Pain Intensity 5 0-10 Variance Documentation SEE BELOW AND PT NOTE Total Treament Time 30 min (8-127) Total Minutes 30 Total Units 2 PT Technical Record Comment PT NOTE S: Pt stated, "I am feeling much better. No pain or anything right now that I am not moving." Agreeable for PT and cleared per KEVIN Coombs. O: Received pt in semi-fowlers, alert w/rigid cervical collar donned already. Bed mobility Christina. Applied gait belt at EOB. STS w/no AD Christina. Gait training performed w/no AD 350' Supervised. Noted reciprocal gait w/no LOB/buckling. Stair training performed 12 steps x 1 using 1 rail (R) side, reciprocal pattern, fair demonstration Supervised. Assisted pt back to room [facility]. Left pt in comfort position, call light/phone within reach, bed alarmed, and all needs met. KEVIN Coombs informed of pt's status. A: Good tolerance to tx. Pt showed no signs of distress or SOB during or after tx. No c/o dizziness or nausea throughout tx. Bed mobility, transfers, and gait distance improved compared to previous tx. Pt demonstrated improvement w/gait training w/out AD vs w/FWW and overall mobility compared to previous tx. P: Continue POC and progress as tolerated.
--- NOTE | 2018-11-23 14:34 | NUR ---
SPOKE WITH YUDI THROUGH THE PHONE FOR PT'S RIGID COLLAR.SHE SAID TRYING SEND COLLAR TO HOSPITAL TODAY OR TOMORROW.BUT SHE CAN NOT GUARANTEE,BECAUSE TODAY IS WEEKEND.
[2018-11-23] MEDS: morphine SULFATE/PF (2 MG/2 ML) SYG IV PRN (17:47)
--- NOTE | 2018-11-23 23:00 | NUR ---
Pt has been ambulating in the beginning of the shift. Has his Theodore cervical collar now. Only asked for pain med x 1. Effective.
[2018-11-24] VITALS (10 sets, daily range): BP systolic 119–161; BP diastolic 71–85; PULSE 68–88; RESP 17–20
[2018-11-24] MEDS: BISACODYL 10 MG SUPP PR PRN (00:34)
[2018-11-24] MEDS: morphine SULFATE/PF (2 MG/2 ML) SYG IV PRN ×3 (03:31→17:48)
[2018-11-24] MEDS: PANTOPRAZOLE 40 MG INJ IV SCH ×2 (05:35→17:42)
--- NOTE | 2018-11-24 06:01 | NUR ---
Pt has been awake all noc. Pt asked for Morphine IVP an hour ago. On cervical collar at all times. Pt asked for another Dulcolax supp. As per pt, if doesn't have BM, will ask MD for Fleet enema. Will endorse to morning nurse. Pt is now sleepy.
[2018-11-24] MEDS: FERROUS SULFATE (EC) 325 MG TAB PO SCH ×2 (08:22→13:07)
[2018-11-24] MEDS: DOCUSATE SODIUM 100 MG CAP PO SCH (08:22)
--- NOTE | 2018-11-24 09:47 | PN ---
Date/Time of Note Date/Time of Note DATE: 11/24/18 TIME: 09:41 Assessment/Plan Lines/Catheters IV Catheter Type (from Nrsg): Peripheral IV Aldana in Place (from Nrsg): No Assessment/Plan Chief Complaint/Hosp Course POD # 4 s/p C4-5 ACDF, C6 corpectomy and C4-7 fusion. Neurologically stable. Pain controlled with oral meds, has sufficient quantities at home and is to f/u with is OP pain management physician. Swallowing improved. Home with Medrol dose norberto. ambulating well. Tolerating new brace much better. Stable for D/C Home today once cleared by medicine. to call office for f/u in 2 weeks./ Subjective 24 Hr Interval Summary Mr. Guzman is doing well. He states that his swallowing has improved and he is eating now. He denies hoarseness. His pre-op numbness continues to improve as does his right Ue strength. He denies fever or chills. Exam/Review of Systems Vital Signs Vitals Vital Signs Date Temp Pulse Resp B/P (MAP) Pulse Ox O2 O2 Flow FiO2 Time Delivery Rate 11/24/18 76 08:00 11/24/18 97.4 18 161/82 92 Room Air 07:38 (108) Intake and Output 11/23/18 11/23/18 11/24/18 1414:59 22:59 06:59 IntakeIntake Total 2000 ml 1800 ml BalanceBalance 2000 ml 1800 ml Exam Constitutional: alert, oriented, well developed Psych: no complaints Head: normocephalic Neck: other (neck in neutral position in new collar. Incision C/D/I) Neurological: [employer]IL[employer] II-XII intact, nl mental status, nl speech, nl strength (mild baseline right biceps and triceps weakness improving) Results Result Diagram: 11/23/18 0543 11/23/18 0543 ALYX GAGE MD Nov 24, 2018 09:47
--- NOTE | 2018-11-24 13:27 | NUR ---
PT NOTES PT NOTES : S: no c/o pain O: Cleared by RN to be seen today , pt agreeable to participate . Received pt in semifowlers position . reviewed donning and doffing of brace, pt has a good understanding and shows good return demonstration. Pt is MOD IND in bed mobility ( log rolling and supine <> sit ) and MOD IND in functional transfers with vc in tasks sequencing and safety . Pt was able to perform gait training without using FWW x SUP x 350 ft followed by stair training x Supervised x 12 steps x 1 reps with the use of 1 siderails . Assisted pt back to the room with all needs within reach , endorsed to RN after tx. A: Pt will benefit in continuing skilled PT to maximize IND in all functional mobility and be able to return to home . Pt will have a good family support once d/c home . P: continue with POC
[2018-11-24] MEDS: oxyCODONE 5 MG TAB PO PRN (13:46)
--- NOTE | 2018-11-24 15:59 | NUR ---
PAIN PUMP: Patient has intrathecal pain pump by [employer] w/ morphine and baclofen. Per patient, morphine dose is 7 mg total in 24 hours. Pt is unsure of baclofen dose. Implant date is 29-Jun-2015. Serial #[id number]. Model 8637-20. RN spoke w/ Hollie from pharmacy to inform.
[2018-11-24] MEDS ORDERED: CARI350T PO ×2 (16:13→16:14)
--- NOTE | 2018-11-24 16:31 | NUR ---
RN NOTES: Patient has orders for DC w/ HHPT. vp legal affairs spoke w/ Nika Pepe CM. Per blair Maher to discharge patient. CM will f/u tomorrow morning.
--- NOTE | 2018-11-24 17:56 | QN ---
Documentation Comment [id number] ELISHA MARCOS MD Nov 24, 2018 17:56
--- NOTE | 2018-11-24 19:01 | NUR ---
DISCHARGE SUMMARY: Patient DC home, ambulatory, HHPT to follow. CM to f/u tomorrow regarding HH, per Nika Pepe CM. VSS, verbalizes relief of pain w/ pain meds. IV DC"d, tip intact. Tele monitor removed. All DC instructions and paperwork given to pt. All prescriptions given to pt. RN educated on purpose and s/e of prescription meds. RN explained the importance of f/u appt w/ PCP and Dr. Welch. Dr. Welch provided DC instructions to pt - pt verbalized understanding. [place] cervical collar in place. All questions answered. All belongings returned to pt.
--- NOTE | 2018-11-24 19:03 | DS ---
DATE OF ADMISSION: 11/20/2018 DATE OF DISCHARGE: 11/24/2018 HOSPITAL COURSE: The patient is a 58-year-old male who has a history of intrathecal pain pump placem ent 2 years ago. The patient has history of pelvic surgery, has history of cervical spondylosis, chr onic neck pain, upper extremity numbness with cervical radiculopathy and myelopathy. The patient und erwent a C4-C5 anterior cervical diskectomy and fusion corpectomy and cervical fusion of C5, C6, C7, placement of mechanical device C4-C5, placement was for corpectomy and C5-C7, placement of PD has cer vical plate. The patient's postop was seen in pain medication and physical therapy. The patient's c ervical spine x-ray was done shows postoperative ____ of the cervical spine. The patient also has an emia only postop. The patient was cleared by Dr. Gage to be discharged home. DISCHARGE DIAGNOSES: Include cervical spondylosis and the patient underwent C4-C5 anterior cervical diskectomy and fusion, C6 corpectomy and cervical fusion of C5, C6, C7. The patient has placement of anterior cervical plate. DISCHARGE MEDICATIONS: Continue on Baclofen, Soma, morphine, oxygen. The patient has an intrathecal pain pump. DISCHARGE INSTRUCTIONS: The patient is to follow up with PCP and follow up with Dr. Gage as an ou tpatient. Dictated By: ELISHA MARCOS MD BS/NTS Conf#: [id number] DID#: [id number] CC: ALYX GAGE MD;*EndCC*
== END 2018-11-24 18:54 | disposition home health service (06) | DRG 473 ==
LOC: REC 06:08 → TEL 15:39
PROVIDERS: ADMIT Neurological Surgery; ATTEND Neurological Surgery
PROC: 0RB30ZZ Excision of Cervical Vertebral Disc, Open Approach (ICD-10-PCS; 2018-11-20)
PROC: 4A11X4G Monitoring of Peripheral Nervous Electrical Activity, Intraoperative, External Approach (ICD-10-PCS; 2018-11-20)
PROC: 0RG20A0 Fusion of 2 or more Cervical Vertebral Joints with Interbody Fusion Device, Anterior Approach, Anterior Column, Open Approach (ICD-10-PCS; principal; 2018-11-20 07:30)
DX: M47.12 Other spondylosis with myelopathy, cervical region (principal); M47.22 Other spondylosis with radiculopathy, cervical region; M48.02 Spinal stenosis, cervical region; E78.00 Pure hypercholesterolemia, unspecified; D64.9 Anemia, unspecified
CPT/HCPCS: 72040; 80048; 85014; 85018; 85025; 86900; 86901; 87086; 97116; 97161; 97530; C9113; J0131; J0360; J0690; J1100; J1200; J2175; J2250; J2270; J2274; J2405; J2710; J3010; J7042; J7120; L0174